=== PATIENT | male | born 1930 | race Caucasian/White ===

== ENCOUNTER → 2016-06-05 | Outpatient (CLI) | payer MEDICARE, OTHER ==
--- NOTE | 2016-06-05 20:25 | MR ---
EXAMINATION TYPE: MR toshia/lspine wo con DATE OF EXAM: 06/05/2016 2:39 PM COMPARISON: NONE HISTORY: 85-year-old male with Cervicalgia, lumbago, pain in neck and lower back for 2.5 years. TECHNIQUE: Multiplanar, multisequence images of the cervical and lumbar spine were obtained without I V contrast. 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 There is normal alignment of the cervical spine. No suspicious bone marrow replacement. No craniocervical junction abnormality, predental space widening, or prevertebral soft tissue swellin g. There is mild to moderate multilevel degenerative disc disease characterized by disc desiccation and disc osteophyte complex formation. Prominent ligamentum flavum thickening seen from C2 through C6 levels. There is also multilevel uncovertebral joint and facet degenerative change. At C2-C3, disc osteophyte complex and ligamentum flavum thickening causes moderate spinal canal steno sis with abutment and slight flattening of both the dorsal and ventral cord. There is facet and uncov ertebral joint arthropathy as well with mild right neuroforaminal stenosis. At C3-C4, there is disc osteophyte complex with ligamentum flavum thickening along with facet and unc overtebral joint arthropathy. Changes result in moderate left and severe right neuroforaminal stenosi s as well as moderate spinal canal stenosis with abutment and flattening of both the dorsal and ventr al cord. At C4-C5, there is disc osteophyte complex with lesser degree of ligamentum flavum thickening. Additi onal facet degenerative change. Changes result in moderate right and [id number] left neuroforam inal stenosis with mild overall spinal canal stenosis. There is abutment of the ventral cord without significant cord flattening. At C5-C6, there is disc osteophyte complex with ligamentum flavum thickening as well as hypertrophic facet and uncovertebral joint arthropathy. Changes result in moderate to severe right and moderate le ft neuroforaminal stenosis with mild overall spinal canal stenosis. No significant cord abutment or c ord flattening. At C6-C7, there is mild disc osteophyte complex with a bilateral facet arthropathy. Changes result in moderate to severe left and [id number] right neuroforaminal stenosis without significant spina l canal stenosis. At C7-T1, there is facet degenerative change without significant spinal canal or neural foraminal damon nosis seen. Loss of the normal right vertebral artery flow void is of questionable clinical significance. No discrete cervical cord signal abnormality. LUMBAR SPINE: Vertebral body heights are preserved and alignment is maintained. Variable [id number] disc desiccation throughout with severe disc height loss at L5-S1 with disc osteophyte complex formation. Mild bulging discs at additional levels. 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 No suspicious bone marrow replacement. Conus medullaris is normal. There is hypertrophic facet arthropathy in the mid to lower lumbar spine with severe ligamentum flavu m thickening opposite L4-L5. At T12-L1, there is no significant spinal canal or neuroforaminal stenosis. At L1-L2, there is mild posterior disc bulge and mild facet degenerative change. There is no signific ant spinal canal or neuroforaminal stenosis. At L2-L3, there is mild disc bulge with mild facet degenerative change and mild ligamentum flavum thi ckening. There is slight impression on to both the dorsal and ventral thecal sac without significant spinal canal stenosis. Changes result in mild left neuroforaminal stenosis. At L3-L4, there is ligamentum flavum thickening with facet degenerative change and bulging disc. Ivory ges accentuate the mild congenital spinal canal stenosis and causes mild left greater than right neur oforaminal stenoses. At L4-L5, there is ligamentum flavum thickening with hypertrophic facet arthropathy, underlying conge nital canal narrowing, and diffuse disc bulge. Changes result in moderate to severe spinal canal sten osis with a moderate left greater than right neural foraminal stenosis. At L5-S1, there is diffuse disc bulge with ligamentum flavum thickening and facet degenerative change . Changes result in moderate bilateral neuroforaminal stenosis without significant spinal canal steno sis. 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 Degenerative changes at both sacroiliac joints. COMBINED IMPRESSION: CERVICAL SPINE: 1. MODERATE MULTILEVEL DEGENERATIVE DISC DISEASE ALONG WITH LIGAMENTUM FLAVUM THICKENING. THERE IS AL SO HYPERTROPHIC FACET AND UNCOVERTEBRAL JOINT ARTHROPATHY THROUGHOUT. 2. CHANGES RESULT IN MODERATE SPINAL CANAL STENOSES AT C2-C3 AND C3-C4 WITH ABUTMENT AND FLATTENING O F BOTH THE DORSAL AND VENTRAL CORD. NO MYELOPATHIC CORD SIGNAL CHANGE SEEN. 3. MILD SPINAL CANAL STENOSES FROM C4 THROUGH C6 LEVELS. 4. VARIABLE MODERATE TO SEVERE NEUROFORAMINAL STENOSES OUTLINED ABOVE. 5. THERE APPEARS TO BE LOSS OF THE NORMAL FLOW-VOID OF THE RIGHT VERTEBRAL ARTERY. LOSS OF FLOW VOID CAN BE SEEN WITH SLOW FLOW OR OCCLUSION. CONSIDER DOPPLER ULTRASOUND EVALUATION TO ENSURE PATENCY. LUMBAR SPINE: 1. NO VERTEBRAL COMPRESSION COLLAPSE OR MALALIGNMENT. 2. MULTILEVEL MILD DEGENERATIVE DISC DISEASE, THOUGH MORE MODERATE TO SEVERE AT L5-S1. 3. 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 4. 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 5. ACCENTUATION OF THE MILD SPINAL CANAL STENOSIS AT L3-L4 WITH MILD LEFT GREATER THAN RIGHT NEUROFOR AMINAL STENOSIS. 6. CHANGES RESULT IN MODERATE BILATERAL NEUROFORAMINAL STENOSIS AT L5-S1. 7. 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
== END | disposition home or self-care (01) ==
LOC: RADMRIMAIN 13:39
PROVIDERS: ATTEND Psychiatry & Neurology Neurology
DX: M48.06 Spinal stenosis, lumbar region (principal); M48.02 Spinal stenosis, cervical region; M99.73 Connective tissue and disc stenosis of intervertebral foramina of lumbar region; M99.71 Connective tissue and disc stenosis of intervertebral foramina of cervical region; M51.36 Other intervertebral disc degeneration, lumbar region; M50.30 Other cervical disc degeneration, unspecified cervical region; M46.86 Other specified inflammatory spondylopathies, lumbar region
CPT/HCPCS: 72141; 72148